=== PATIENT | male | born 1965 ===

== ENCOUNTER 2017-06-16 00:15 | Day surgery (SDC) | payer OTHER ==
[~2017-06-16] VITALS: Ht 188 cm; Wt 132.4 kg
[~2017-06-16 00:15] MED LIST: ENAL-242 PO; HYDR-2966 PO; NIFE-13 PO
[2017-06-16 06:45] VITALS: BP 142/84
[2017-06-16] MEDS ORDERED: ROPIVACAINE 0.2% 20 ML VIAL ONE (06:57)
[2017-06-16] MEDS ORDERED: ceFAZolin(*) 2GM/D5W 50ML 50 ML IVPB ONE (08:15)
[2017-06-16] MEDS ORDERED: NORMOSOL R SOLN(*) 1000 ML BAG 1,000 ML IV PRN (08:15)
[2017-06-16] MEDS ORDERED: MIDAZOLAM 2 MG/2 ML VIAL IVP PRN (08:15)
[2017-06-16] MEDS ORDERED: CELECOXIB 200 MG CAP PO ONE (08:15)
[2017-06-16] MEDS ORDERED: FAMOTIDINE 20 MG TAB PO ONE (08:15)
[2017-06-16] MEDS ORDERED: LIDOCAINE/SOD BICARB 8.4% SYR ID ONE (08:15)
[2017-06-16] MEDS ORDERED: fentaNYL CITR 250 MCG/5 ML AMP ONE ×2 (08:26→08:27)
[2017-06-16] MEDS ORDERED: DEXAMETHASONE SOD 4 MG/ML VIAL ONE (08:28)
[2017-06-16] MEDS ORDERED: LIDOCAINE 2% IV 100 MG/5ML SYR ONE (08:28)
[2017-06-16] MEDS ORDERED: PROPOFOL EMUL(*) 10MG/ML 20 ML 40 ML ONE (08:30)
[2017-06-16] MEDS ORDERED: ONDANSETRON 4 MG/2 ML VIAL ONE (09:16)
[2017-06-16] MEDS ORDERED: KETOROLAC 30 MG/ML VIAL ONE (09:16)
[2017-06-16] MEDS ORDERED: APAP/HYDROCODONE 325/5 TAB PO PRN (10:20)
[2017-06-16] MEDS ORDERED: ONDANSETRON 4 MG/2 ML VIAL IVP PRN (10:20)
[2017-06-16] MEDS ORDERED: MORPHINE 2 MG/ML SYR IVP PRN (10:20)
[2017-06-16] MEDS ORDERED: LR(*) 1000 ML BAG 1,000 ML IV PRN (10:40)
[2017-06-16] MEDS ORDERED: HYDR-4309 PO (10:48)
[2017-06-16 11:05] VITALS: BP 133/77
[2017-06-16 11:19] VITALS: BP 126/87
[2017-06-16 11:20] VITALS: BP 120/93
--- NOTE | 2017-06-16 19:57 | OPERATIVE REPORT 1 ---
EVENT DATE: June 16, 2017 SURGEON: Kit Adam MD ANESTHESIOLOGIST: Fito Martin MD ANESTHESIA: General LMA. TOXICOLOGIST: Wilfred Barrera PA-C PREOPERATIVE DIAGNOSIS Right medial and lateral meniscal tears, cartilage damage, and synovitis. POSTOPERATIVE DIAGNOSIS Right medial and lateral meniscal tears, cartilage damage, and synovitis. PROCEDURE PERFORMED Right knee arthroscopic partial medial meniscectomy, partial lateral meniscectomy, chondroplasty, and synovectomy, as well as bone spur removal. FINDINGS The patient has significant torn cartilage in the medial and lateral menisci, but was amenable for resection. ESTIMATED BLOOD LOSS Minimal. DRAINS None. COMPLICATIONS None. IMPLANTS USED Not applicable. TOURNIQUET TIME About 32 minutes. INDICATIONS AND HISTORY This patient is a 51-year-old male who presented to my clinic for evaluation of right knee pain and irritation going on for some time. He had had a previous ACL reconstruction and had some cartilage damage that was known in this area. He continued to have pain and irritation despite conservative management, and so therefore he wanted to go ahead with an injection. We did an injection, and it continued to give him some pain and irritation associated with it, and so therefore we got him set up to do a partial meniscectomy, chondroplasty, and synovectomy. The risks and benefits were discussed with the patient, and informed consent was obtained at the last clinic visit. DESCRIPTION OF PROCEDURE As the patient was brought in the operating room, he and the procedure were both verified. He was placed supine on the operating table and induced and intubated by Anesthesia. The right lower extremity was then prepped and draped in the usual fashion. A timeout was observed verifying the correct patient and procedure. The standard incisions were made over the anterior aspect of the knee. This was taken through the skin and subcutaneous tissue, and I was able to insert the scope on the lateral side. This was when there was noted to be a significant amount of synovitis as well as cartilage damage throughout the knee. I then performed a chondroplasty using a suction shaver on the patellofemoral joint as well as a minor synovectomy over the plica over the medial side and breaking up a lot of the scar tissue throughout this area. I then was able to go in the medial compartment where there was a large medial meniscus tear in the posteromedial aspect. I was able to resect this using a combination of a biter and a suction shaver in order to get it to a nice stable base. I was then able to probe it and make sure there were no signs of further detachment associated with it. I then went in the central pivot where I debrided the ACL and graft. I did remove a bone spur in this area, and I also removed a bone spur up in the superior aspect in the notch and then also from the patellofemoral joint. Once I was able to do this, I then went into the lateral compartment where there was a lateral meniscus tear which I was able to clean up from the anterior aspect of the lateral meniscus, and then there was also a root tear in the posterolateral aspect, and so I was able to debridement this and resect it back using a combination of a biter and suction shaver in order to preserve part of the root and not destabilize the lateral meniscus. I was able to take it back to a stable base. Once I did this, I then performed a chondroplasty on the distal femoral condyle as well as the proximal tibia, which we had also done on the medial side. I then reversed the portals, cleaned up the rest of the lateral compartment, and then also removed some of the synovitis on the lateral side. I finished the chondroplasty on the patellofemoral joint and then removed all instrumentation, drained the fluid out of the knee, and then closed the portal sites with a 4-0 Monocryl in an interrupted subcuticular fashion. This was then followed by Steri-Strips and anesthetization with ropivacaine and then a dressing with a soft dressing. The patient was awakened, extubated, and transferred to PACU in stable condition. PANCHO
== END 2017-06-16 11:40 | disposition home or self-care (01) ==
LOC: OR 00:15
PROVIDERS: ATTEND Orthopaedic Surgery
DX: S83.281A Other tear of lateral meniscus, current injury, right knee, initial encounter (principal); S83.241A Other tear of medial meniscus, current injury, right knee, initial encounter; M65.9 Synovitis and tenosynovitis, unspecified
CPT/HCPCS: 29880; J1100; J1885; J2001; J2405; J2704; J2795; J3010; J0690